=== PATIENT | female | born 1945 | race Caucasian/White ===

== ENCOUNTER 2018-08-25 17:07 | Observation (INO) ==
[2018-08-25] MEDS ORDERED: KEFZOL 1 GM/D5W 1 GM/50 ML IVPB IV ONE (17:27)
[2018-08-25] MEDS ORDERED: MORPHINE IV ONE ×2 (17:27→18:58)
[2018-08-25] MEDS ORDERED: BOOSTRIX VACCINE IM ONE (17:27)
[2018-08-25] MEDS ORDERED: ZOFRAN IV ONE (17:27)
--- NOTE | 2018-08-25 17:35 | PROVIDER DOCUMENTATION ---
HPI-Musculoskeletal Pain/Inj - GENERAL Chief Complaint: Fall Stated Complaint: FALL / TAIL BONE Time Seen by Provider: 08/25/18 17:27 Source: patient - HX OF PRESENT ILLNESS-MUSKULOSKELTAL Nature of Presenting Problem: pt c/o falling [employer] and hitting tailbone on unknown surface. pt has deep puncture wound to sacral area, approx 6 cm entry wound. pt has no other complaints at this time. pt denies syncope or head trauma, was ambulatory after fall. Quality of Pain: reports: sharp, stabbing (pain worse with palpation and exploration, mild if not aggrivated) Severity in ED: mild Onset/Duration: 1-3 hours ago Timing: still present Modifying Factors: improves with: other (palpation and exploration exacerbate pain) Any recent injury?: Yes (fall) Locality of Occurance: Other (wedding) Similar Symptoms Previously?: No Recently seen or treated by another doctor?: No - FALL INJURY Location of Pain/Injury: reports: other (saccral area) Pain Radiation: reports: no radiation Reason for Fall: reports: lost balance Symptoms prior to fall:: reports: none Loss of Consciousness: no loss of consciousness Injury Associated Symptoms: reports: denies symptoms - HIP/PELVIS PAIN/INJURY Hip Pain Location: reports: other (sacral puncture wound, profuse bleeding) Pain Radiation: reports: no radiation Context / Method of Injury: reports: fall Associated Symptoms: reports: denies symptoms Review of Systems - Adult - REVIEW OF SYSTEMS - ADULT Constitutional: reports: no symptoms reported Eyes: reports: no symptoms reported Ears, Nose, Mouth & Throat: reports: no symptoms reported Cardiovascular: reports: no symptoms reported Respiratory: reports: no symptoms reported Gastrointestinal: reports: no symptoms reported Genitourinary: reports: no symptoms reported Musculoskeletal: reports: see HPI Integumentary: reports: no symptoms reported Neurological: reports: no symptoms reported Psychiatric: reports: no symptoms reported Endocrine: reports: no symptoms reported Hematologic/Lymphatic: reports: no symptoms reported Allergic/Immunologic: reports: no symptoms reported All Other Systems: Reviewed and Negative Past History - Adult - PAST MEDICAL HISTORY-ADULT Review of Records: reports: Old Records Reviewed, Nursing Assessment Review, Medications Reviewed Major Childhood Illnesses: reports: denies history Cardiovascular: reports: hyperlipidemia Respiratory: reports: denies history Gastrointestinal: reports: GERD Obstetrical/Gynecological: reports: denies history Genitourinary: reports: denies history Musculoskeletal: reports: denies history - SOCIAL HISTORY Smoking: denies Substance Use: none/never Alcohol Use Frequency: never Physical Exam-Injury Related - Physical Exam-Injury Related Initial Vital Signs Reviewed: Yes General Appearance: appears well, alert, no apparent distress Eyes: PERRL/EOMI, pink conjunctivae. negative: anisocoria, photophobia, sclera injected, scleral icterus Head, Ears, Nose, Mouth & Throat: normocephalic/atraumatic, moist mucous membranes, normal ENT inspection Neck: non-tender, full range of motion, supple Respiratory: chest non-tender, lungs clear, normal breath sounds, no pleuratic chest pain, no respiratory distress, no accessory muscle use Cardiovascular: normal peripheral pulses, regular rate, rhythm, no edema, no gallop Chest/Breast: deferred Abdominal Exam: normal bowel sounds, non tender Female Genitalia/Pelvic Exam: deferred Rectal Exam: deferred Hemoccult Exam: deferred Lymphatic: no adenopathy Back Exam: other (puncture wound to saccral area) Extremity: normal range of motion, non-tender, normal gait, normal inspection, no pedal edema, no calf tenderness, normal capillary refill Integumentary: other (puncture wound to saccral area) Neurologic: grossly normal, no motor/sensory deficits Psych/Mental Status: normal mood/affect, normal thought content, normal thought process, oriented x 3 - Glascow Coma Score Best Eye Response (Emily): (4) open spontaneously Best Verbal Response (Emily): (5) oriented Best Motor Response (Emily): (6) obeys commands Progress - PLAN OF CARE/RESULTS Progress/Plan/Lab Results: Vital Signs - 8 hr 08/25/18 17:17 08/25/18 18:43 Temperature 98 F Pulse Rate 86 86 Respiratory Rate 18 16 Blood Pressure 137/84 115/87 O2 Sat by Pulse Oximetry 96 97 Laboratory Results - last 24 hr 08/25/18 08/25/18 08/25/18 17:55 17:55 17:55 WBC 9.55 RBC 4.47 Hgb 13.6 Hct 39.6 MCV 88.6 MCH 30.4 MCHC 34.3 RDW Std Deviation 13.0 Plt Count 241 MPV 11.2 H Immature Gran % (Auto) 0.2 Neut % (Auto) 46.1 Lymph % (Auto) 36.5 Cassia % (Auto) 9.4 H Eos % (Auto) 7.2 Baso % (Auto) 0.6 Immature Gran # (Auto) 0.02 Neut # (Auto) 4.39 Lymph # (Auto) 3.49 H Cassia # (Auto) 0.90 H Eos # (Auto) 0.69 Baso # (Auto) 0.06 PT 12.2 INR 0.86 Sodium 142 Potassium 4.2 Chloride 106 Carbon Dioxide 25 Anion Gap 11 BUN 14 Creatinine 0.5 Estimated GFR/1.73 m2 > 60 BUN/Creatinine Ratio 28 Glucose 105 H Calculated Osmolality 284 Calcium 9.9 Total Bilirubin < 0.15 L AST 15 ALT 19 Alkaline Phosphatase 79 Total Protein 6.5 Albumin 4.1 Globulin 2.0 Albumin/Globulin Ratio 2.0 Orders Category Date Time Status CT PELVIS W/CONTRAST [CT] Stat Exams 08/25/18 17:56 Ordered PELVIS [RAD] Stat Exams 08/25/18 18:34 Completed CBC WITH ELECTRONIC DIFF [HEME] Stat Lab 08/25/18 17:55 Completed COMPREHENSIVE METABOLIC PANEL [CHEM] Stat Lab 08/25/18 17:55 Completed PT [PROTIME WITH INR] [COAG] Stat Lab 08/25/18 17:55 Completed Cefazolin 1 gm/D5w [Kefzol 1 gm/D5w] Med 08/25/18 17:27 Discontinued 1 gm in 50 ml IV NOW Diph,Pertuss(Acell),Tet Vac/Pf [Boostrix Vaccine] Med 08/25/18 17:27 Discontinued 0.5 ml IM .ONCE ONE Morphine Med 08/25/18 17:27 Discontinued 2 mg IV NOW ONE Morphine Med 08/25/18 18:58 Discontinued 2 mg IV NOW ONE Ondansetron [Zofran] Med 08/25/18 17:27 Discontinued 4 mg IV NOW ONE Dr Sol took patient to surgery at [facility] @1915 Result Diagrams: 08/25/18 17:55 08/25/18 17:55 - CONSULTS/PCP/HOSPITALIST Notification #1 *Consult/PCP/Hospitalist*: Dr Sol Time Discussed: 17:30 Reason/Comments: Dr sol took pt to OR at [facility] to repair puncture wound Consult Disposition: Will see in ED (Dr Sol will see patient in ED) Departure - Departure Date of Disposition Decision: 08/25/18 DIAGNOSIS: Puncture wound, Fall Referrals and Follow-Ups: None,PCP [Primary Care Provider] - - Critical Care Note This patient required my direct & personal management of CC.: No Attestation - Physician/ JANET Attestation Patient care was provided by Advanced Practice Provider:: Yes Advanced Practice Provider:: Marlen Lira Advanced Practice Provider documentation review:: The Mid-level provider documentation, treatment plan and medical decision making was reviewed by the physician who agrees with all treatment and medical decision making by the MLP. The physician spent face to face time with patient:: No Advanced Practice Provider documentation review:: Supervising physician onsite and consulted in the evaluation and care of this patient. The physician did not have a face to face encounter with the patient.
[2018-08-25 18:24] LABS: BASO# 0.06 X1000 (0.0-0.2); BASO% 0.6 % (0.0-0.8); EOS# 0.69 X1000 (0.0-0.7); EOS% 7.2 % (0.0-10.0); HEMATOCRIT 39.6 % (37.0-47.0); HEMOGLOBIN 13.6 g/dL (12.0-16.0); IMM GRAN# 0.02 X1000 (0.0-0.04); IMM GRAN% 0.2 % (0.0-0.5); LYMPH# 3.49 X1000 (1.2-3.4); LYMPH% 36.5 % (20.5-51.1); MCH 30.4 PG (27-31); MCHC 34.3 g/dL (33-37); MCV 88.6 FL (81-99); MONO% 9.4 % (1.7-9.3); MPV 11.2 FL (7.4-10.4); NEUT# 4.39 X1000 (1.4-6.5); NEUT% 46.1 % (42.2-75.2); PLT 241 X1000 (130-400); RBC 4.47 XMIL (4.2-5.4); WBC 9.55 X1000 (4.8-10.8)
[2018-08-25 18:36] LABS: INR 0.86; PROTIME 12.2 Seconds (11.0-16.0)
[2018-08-25 19:03] LABS: AGAP 11; ALBUMIN 4.1 g/dL (3.5-5.0); ALKALINE PHOSPHATASE 79 U/L (32-104); BUN 14 mg/dL (8-22); CALCIUM 9.9 mg/dL (8.8-10.2); CHLORIDE 106 mmol/L (98-107); COSMO 284; CREATININE 0.5 mg/dL (0.5-0.9); ESTIMATED GFR > 60; GLUCOSE 105 mg/dL (70-104); GOT 15 U/L (10-30); GPT 19 U/L (10-36); POTASSIUM 4.2 mmol/L (3.5-5.1); SODIUM 142 mmol/L (136-145); TCO2 25 mmol/L (25-35); TOTAL BILIRUBIN < 0.15 mg/dL (0.20-1.00); TOTAL PROTEIN 6.5 g/dL (6.3-8.3)
--- NOTE | 2018-08-25 19:19 | Diag Imaging Result Doc PS360 ---
EXAM: PELVIS 08/25/2018 HISTORY: fall TECHNIQUE: AP pelvis COMMENT: There is no evidence of fracture or other definite acute bony abnormality. The hip joint spaces are well-maintained. There are no previous studies available for comparison. IMPRESSION: No acute bony abnormality. Electronically signed by Brandon Gilman 08/25/2018 7:16 PM
[2018-08-25] MEDS ORDERED: XYLOCAINE-MPF 2% ONE (20:07)
[2018-08-25] MEDS ORDERED: DIPRIVAN 1% ONE (20:07)
--- NOTE | 2018-08-25 20:09 | Diag Imaging Result Doc PS360 ---
EXAM: CT PELVIS W/CONTRAST 08/25/2018 HISTORY: trauma/puncture wound TECHNIQUE: This exam was performed using automated exposure control, adjustment of mA or kV according to patient size, and/or use of iterative reconstruction technique. COMMENT: There is no evidence of free air or free fluid. The urinary bladder is nondistended. There are diverticula present in the descending and sigmoid colon without evidence of diverticulitis. There is soft tissue gas superficial and within the gluteus radha muscle on the left. There is also gas around the coccyx and inferior sacrum. There is subcutaneous fluid/hematoma superficial to the lower sacrum and popliteal muscles on the left. There is no evidence of acute bony abnormality. There is vacuum joint phenomenon in the sacroiliac joints. IMPRESSION: Superficial soft tissue hematoma posterior to the sacrum and coccyx with soft tissue gas around the coccyx and in the left gluteus radha muscle. Electronically signed by Brandon Gilman 08/25/2018 8:07 PM
[2018-08-25] MEDS ORDERED: SENSORCAINE 0.25%/EPI 1:200,000 ONE (20:13)
[2018-08-25] MEDS ORDERED: NEO-SYNEPHRINE ONE (20:59)
[2018-08-25] MEDS ORDERED: ZOFRAN ONE (20:59)
[2018-08-25] MEDS ORDERED: SODIUM CHLORIDE 0.9% 10 ML ONE (20:59)
[2018-08-25] MEDS ORDERED: DECADRON ONE (20:59)
[2018-08-25] MEDS ORDERED: FENTANYL ONE (21:06)
[2018-08-25] MEDS ORDERED: ZOFRAN IV PRN (22:37)
[2018-08-25] MEDS ORDERED: LR 1,000 ML IV SCH (22:37)
[2018-08-25] MEDS: NORCO-7.5 PO PRN (22:57)
[2018-08-25] MEDS: KEFZOL 1 GM/D5W 1 GM/50 ML IVPB IV SCH (22:58)
[2018-08-26] MEDS ORDERED: TYLENOL PO PRN (01:23)
[2018-08-26 01:43] LABS: BILIRUBIN URINE NEGATIVE (NEGATIVE); BLOOD URINE 3+ (NEGATIVE); CLARITY CLEAR (CLEAR); COLOR YELLOW; KETONE URINE TRACE mg/dL (NEGATIVE); LEUKOCYTES URINE TRACE (NEGATIVE); NITRITE URINE NEGATIVE (NEGATIVE); PH URINE 6.5; PROTEIN URINE TRACE mg/dL (NEGATIVE); SP GRAVITY URINE 1.015; UROBILINOGEN URINE NORMAL
[2018-08-26 01:44] LABS: URINE BACTERIA 2+ /HFP; URINE EPITHELIAL CELLS <10 /HPF (<10); URINE RBC <10 /HPF (<10); URINE SOURCE CLEAN CATCH; URINE WBC <10 /HPF (<10)
[2018-08-26] MEDS: NORCO-7.5 PO PRN ×2 (03:37→07:11)
[2018-08-26] MEDS: KEFZOL 1 GM/D5W 1 GM/50 ML IVPB IV SCH (06:17)
[2018-08-26 06:55] LABS: BASO# 0.02 X1000 (0.0-0.2); BASO% 0.2 % (0.0-0.8); EOS# 0.01 X1000 (0.0-0.7); EOS% 0.1 % (0.0-10.0); HEMOGLOBIN 11.1 g/dL (12.0-16.0); IMM GRAN# 0.04 X1000 (0.0-0.04); IMM GRAN% 0.3 % (0.0-0.5); LYMPH# 1.53 X1000 (1.2-3.4); MCH 29.4 PG (27-31); MCHC 32.6 g/dL (33-37); MCV 90.2 FL (81-99); MONO# 0.21 X1000 (0.11-0.59); MONO% 1.6 % (1.7-9.3); MPV 11.6 FL (7.4-10.4); NEUT# 10.98 X1000 (1.4-6.5); NEUT% 85.8 % (42.2-75.2); PLT 242 X1000 (130-400); RBC 3.77 XMIL (4.2-5.4); RDW 12.9 % (11.5-14.5); WBC 12.79 X1000 (4.8-10.8)
[2018-08-26 07:24] LABS: LYMPHS 13 % (21-51); MONO 1 % (1-9); SEGS 76 % (42-75)
[2018-08-26 07:28] VITALS: BP 157/90
--- NOTE | 2018-08-26 08:49 | HISTORY AND PHYSICAL ---
DATE OF ADMISSION: 08/25/2018 HISTORY OF PRESENT ILLNESS: This is a 72-year-old female who is otherwise reasonably healthy, who was headed to a wedding. She tripped in the parking lot, fell on the curb. No loss of consciousness. She said she just tripped and did not think she had any injury and then she noticed after she had entered the [employer] that she had blood running down the back of her leg. She came to the ER where she was noted to have a quite significant amount of hemorrhage from her left gluteal cleft. Plain film x-rays did not show an obvious fracture. Attempted exploration at bedside showed no wounds. Unable to identify the source of significant bleeding. She denies any weakness, paresthesias and in fact was ambulating around the ER when the bleeding recurred. PAST MEDICAL HISTORY: Hypertension. SURGICAL HISTORY: She has had cholecystectomy and a hysterectomy. SOCIAL HISTORY: Occasional alcohol. No tobacco. No drugs. She is . Otherwise, very active. REVIEW OF SYSTEMS: Ten point negative. FAMILY HISTORY: Reviewed and noncontributory. MEDICATIONS: She takes aspirin several times a day for chronic headaches. No fevers. PHYSICAL EXAMINATION: Vitals: Pulse 86, blood pressure 115/87, oxygen saturation 97%. General: She is alert, in no acute distress. HEENT: No scleral icterus. No cervical mass. Cardiovascular: Normal rate. Pulmonary: No increased work of breathing. Abdomen: Soft. Integument: Warm and dry. Psychiatric: Appropriate affect. Peripheral vascular: She has well perfused lower extremities. Neurological: Normal range of motion, movement and sensation intact. Musculoskeletal: Her superior gluteal just superior and lateral to the gluteal cleft, there is an approximately 6-cm laceration that is down to the level of muscle with significant bleeding noted emanating from the bed of the wound. Not pulsatile, does seem venous. IMAGING: I have reviewed a contrasted scan that shows a soft tissue injury extending down to the level of the bone, but I do not see a fracture, no retained foreign bodies. No obvious extravasation within the wound. She had plain film x-rays again that showed no bony abnormality. LABORATORY: White count 9, hematocrit 39, platelets 241,000. Creatinine 0.5. LFTs are normal. Glucose 105, albumin is 4.1. ASSESSMENT AND PLAN: A 72-year-old female with ongoing hemorrhage from the left gluteal wound from a fall. I have discussed the risk of further bleeding, infection, delayed healing, damage to surrounding structures, anticipated recovery. She understands all of this and consents. We will go to the operating room for exploration of the wound, washout and repair of this traumatic laceration. She has received tetanus as well as Ancef in the ER, as well as some pain medication. DISPOSITION: Pending findings at time of surgery. cc: Stone Victor MD
--- NOTE | 2018-08-26 09:01 | OPERATIVE NOTE ---
PROCEDURE DATE: 08/25/2018 PREOPERATIVE DIAGNOSIS: Traumatic complex laceration, left superior gluteal muscle. POSTOPERATIVE DIAGNOSIS: Traumatic complex laceration, left superior gluteal muscle. PROCEDURE PERFORMED: Left superior gluteal wound exploration, evacuation of hematoma, control of hemorrhage, with complex laceration repair, 10 x 5 cm x 5 cm. SURGEON: Stone Victor M.D. ANESTHESIA: General. OPERATIVE INDICATION: This is a 72-year-old female who had a fall on a concrete curb, and sustained a large laceration to the superior gluteal skin. There was no evidence of bony injury on imaging, but she had persistent bleeding despite attempts at local control in the emergency department. OPERATIVE FINDINGS: There was a large complex laceration, somewhat of a chevron shape, in the superior left lateral gluteal. There was significant undermining related to the puncture nature of the injury that extended down through the gluteal muscles, down to the periosteum of the coccyx and sacrum. There is no arterial bleeding noted, but diffuse muscle oozing. DESCRIPTION OF PROCEDURE: Risks, benefits, and alternatives were discussed with the patient, and she consented for the procedure. She was seen preoperatively. Surgical site was confirmed. She was taken to the operating room, placed in the supine position, and general anesthesia was induced. She was on scheduled antibiotics. She was then placed in prone position. Her left gluteal skin was prepped with Betadine, and draped in the usual fashion. After time-out, we evacuated the hematoma, again exploring the wound. We had to extend the incision to fully evaluate the cavity as it was quite large. We irrigated the wound copiously, identified several areas of brisk muscle bleeding that we cauterized. We observed the wound for several minutes, irrigating, and noted hemostasis. After copiously irrigating the wound, there was no retained debris. There was no necrotic tissue. We loosely approximated the muscle fascia with interrupted 3-0 Vicryl sutures, and then closed the skin loosely with vertical mattress 3-0 nylon retention sutures. We injected local anesthetic circumferentially. A tape dressing was applied. She tolerated it well. She was awoken and transferred to recovery. I spoke with the . Will admit her overnight for observation. Repeat a hematocrit in the morning. Keep her on antibiotics perioperatively. cc: Stone Victor MD
--- NOTE | 2018-08-27 13:13 | DISCHARGE SUMMARY ---
ADMISSION DATE: 08/25/2018 DISCHARGE DATE: 08/26/2018 ADMITTING DIAGNOSIS: Traumatic laceration of the left gluteus muscle. POSTOPERATIVE DIAGNOSIS: Traumatic laceration of left gluteus muscle. PROCEDURE PERFORMED DURING HOSPITAL: Wound exploration with control of hemorrhage and complex repair. HISTORY OF PRESENT ILLNESS: A 72-year-old female who sustained a fall and a traumatic laceration to her left superior midline glut. We were unable to obtain hemostasis in the emergency department and she was taken operating room. HOSPITAL COURSE: She was admitted to the floor and continued on IV antibiotics and then her pain was controlled with morphine and [place]. She was able to tolerate a diet, was able ambulate without difficulty, had no further brief bleeding. Hematocrit did trend down slightly as expected down to 34 from preop of 39. Her incision is intact with bruising but no cellulitis and she was felt safe for discharge. I gave them detailed instructions. She will follow up with primary doctor within the week. I gave her another 7 days of Keflex 500 t.i.d., [place] for pain and Colace for stool softener. She will stay off the wound as best she can, continue and change the superficial dressing as often as needed. She will call with any fevers, erythema. They are staying in [facility] and I can see them in the office tomorrow if there is any issues. Otherwise, she will follow up closer to home. She does live in [place]. cc: Stone Victor MD
== END 2018-08-26 10:33 | disposition home or self-care (01) ==
LOC: P.ED 17:07 → P.MEDSURG 22:28 → INTOOBSV 22:28
PROVIDERS: ADMIT Surgery; ATTEND Surgery
PROC: GE.EXPL (2018-08-25 20:40)
CPT/HCPCS: 72170; 72193; 80053; 81001; 85025; 85610; 87088; 90471; 90715; 96365; 96375; 99285; A9270; J0690; J1100; J2270; J2370; J2405; J3010; J7120; Q9967